=== PATIENT | male | born 1945 | race Caucasian/White ===

== ENCOUNTER → 2018-05-21 | Outpatient (CLI) | payer MEDICARE, OTHER ==
[~2018-05-21] MED LIST: ASPIRIN 32325 MG/TAB PO; CEPHALEXIN500 M1 PO; CETRIZINE; HYZAAR 25 MG-101 TAB PO; LEVAQUIN 5500 MG/TAB PO; PHENERGAN1.25 MG/ML; PROTONIX TR40 MG PO; SEPTRA DS 800 M1 TAB PO; SINGULAIR; VICODIN 5/5001 UDTAB PO; XYAL5 MG PO; ZITHROMAX 250M250 MG PO
== END ==
LOC: COL.CARD 06:30
DX: G47.10 Hypersomnia, unspecified (principal)

== ENCOUNTER 2023-10-15 22:33 | Inpatient (IN) | payer MEDICARE, OTHER ==
[~2023-10-15] VITALS: Ht 175.4 cm; Wt 107.8 kg
[2023-10-15 23:12] LABS: BASO # 0.1 K/mm3 (0.0-0.2); BASO % 0.9 % (0.0-2.0); EOS # 0.4 K/mm3 (0.0-0.7); EOS % 3.2 % (0.0-4.0); GRAN # 6.6 K/mm3 (1.4-6.5); GRAN % 51.5 % (42.2-75.2); HEMOGLOBIN 16.8 g/dl (13.5-18.0); LYMPH # 4.7 K/mm3 (1.2-3.4); LYMPH % 36.2 % (20.0-51.0); MEAN CELL VOLUME 87 fl (80.0-100.0); MEAN CORPUSCULAR HEMOGLOBIN 28 pg (27-31); MEAN CORPUSCULAR HGB CONC 32 g/dl (33.0-37.0); MEAN PLATELET VOLUME 10.6 fl (7.4-10.4); MONO % 7.9 % (1.7-9.3); PLATELET COUNT 277 K/mm3 (130-400); RED BLOOD COUNT 6.08 M/mm3 (4.20-5.60); REDCELL DISTRIBUTION WIDTH-CV 14.7 % (11.5-14.5)
[2023-10-15] MEDS ORDERED: HYDROmorphone 0.5 MG/0.5 ML SYRINGE IV ONE (23:15)
[2023-10-15] MEDS ORDERED: Ondansetron 4 MG/2 ML VIAL IV ONE (23:15)
[2023-10-15] MEDS ORDERED: NS 1,000 ML IV ONE (23:15)
[2023-10-15 23:23] LABS: HEMATOCRIT 52.6 % (42.0-52.0)
[2023-10-15 23:31] LABS: ALBUMIN 3.9 gm/dL (3.4-4.8); BILIRUBIN,TOTAL 0.3 mg/dL (0.2-1.2); C-REACTIVE PROTEIN 0.64 mg/dL (0.00-0.50); CALCIUM 10.2 mg/dL (8.4-10.2); CREATININE, serum 1.98 mg/dL (0.72-1.25); POTASSIUM 4.3 mmol/L (3.5-4.5); TOTAL PROTEIN 7.3 gm/dL (6.2-8.1)
[2023-10-16] VITALS (14 sets, daily range): BP systolic 90–167; BP diastolic 49–84; PULSE 64–83; TEMP 97.4–98
[2023-10-16] MEDS ORDERED: Iohexol 300 - 100 ML VIAL IV ONE (00:21)
[2023-10-16] MEDS ORDERED: NS 50 ML IV ONE (00:22)
[2023-10-16 00:24] LABS: PH 5.5 (5.0-8.5); URINE APPEARANCE CLEAR (CLEAR/HAZY); URINE BLOOD NEGATIVE (NEGATIVE); URINE COLOR YELLOW (YELLOW); URINE GLUCOSE 3+ (NEGATIVE); URINE KETONE NEGATIVE (NEGATIVE); URINE NITRATE NEGATIVE (NEGATIVE); URINE PROTEIN(semi-quant) 2+ (NEGATIVE); URINE UROBILINOGEN 0.2 E.U/dL (0.2-1.0)
[2023-10-16 00:31] LABS: COLLECTION METHOD CLEAN CATCH
[2023-10-16] MEDS ORDERED: NS 1,000 ML IV ONE (01:15)
[2023-10-16] MEDS ORDERED: PROTONIX 40MG T40 MG PO (01:23)
[2023-10-16] MEDS ORDERED: TOVIAZ8 MG PO (01:24)
[2023-10-16] MEDS ORDERED: PROSCAR 5MG5 MG PO (01:24)
[2023-10-16] MEDS ORDERED: ZYRTEC 10MG10 MG PO (01:25)
[2023-10-16] MEDS ORDERED: ZETIA 10MG TAB10 MG PO (01:25)
[2023-10-16] MEDS ORDERED: GLUCOTROL XL10 MG PO (01:26)
[2023-10-16] MEDS ORDERED: GLUCOPHAGE1000 MG PO (01:26)
[2023-10-16] MEDS ORDERED: ASTELIN NASAL S34 ML NS (01:26)
[2023-10-16] MEDS ORDERED: ASPIRIN 81M81 MG/TA2 PO (01:27)
[2023-10-16] MEDS ORDERED: NATURAL POTASS595 MG (01:28)
[2023-10-16] MEDS ORDERED: OMEGA-31 SGL PO (01:28)
[2023-10-16] MEDS ORDERED: FARXIGA10 PO (01:29)
[2023-10-16] MEDS ORDERED: PATADAY 2.5 ML2.5 ML OU (01:29)
[2023-10-16] MEDS ORDERED: Polyethylene Glycol 3350 17 GM PDS PO PRN (02:45)
[2023-10-16] MEDS ORDERED: Acetaminophen 500 MG TAB PO PRN (02:45)
[2023-10-16] MEDS ORDERED: Ondansetron 4 MG/2 ML VIAL IV PRN ×2 (02:45→11:30)
[2023-10-16] MEDS ORDERED: NS 1,000 ML IV SCH (02:45)
[2023-10-16] MEDS ORDERED: Morphine 4 MG/ML VIAL IV PRN (03:15)
[2023-10-16] MEDS ORDERED: Insulin Glargine-ygfn (Lantus) SQ ONE (03:15)
[2023-10-16] MEDS ORDERED: Dextrose 50% Water 25 GM/50 ML SYRINGE IV PRN (03:30)
[2023-10-16] MEDS ORDERED: Dextrose (Glucose) 15 GM (4 x 3.75 GM) Chewable TABLET PACK PO PRN (03:30)
[2023-10-16] MEDS ORDERED: Glucagon 1 MG VIAL IM PRN (03:30)
[2023-10-16] MEDS ORDERED: CYANOCOBAL1000 MCG/M IM (04:27)
--- NOTE | 2023-10-16 06:36 | NUR ---
Pt had an uneventful night. Pt is currently resting in bed with call light within reach.
[2023-10-16 06:48] LABS: BASO # 0.1 K/mm3 (0.0-0.2); BASO % 0.8 % (0.0-2.0); EOS # 0.1 K/mm3 (0.0-0.7); EOS % 1.3 % (0.0-4.0); GRAN # 6.7 K/mm3 (1.4-6.5); GRAN % 67.5 % (42.2-75.2); HEMATOCRIT 46.4 % (42.0-52.0); LYMPH # 2.1 K/mm3 (1.2-3.4); LYMPH % 21.3 % (20.0-51.0); MEAN CELL VOLUME 86 fl (80.0-100.0); MEAN CORPUSCULAR HEMOGLOBIN 28 pg (27-31); MEAN CORPUSCULAR HGB CONC 32 g/dl (33.0-37.0); MEAN PLATELET VOLUME 10.8 fl (7.4-10.4); MONO # 0.9 K/mm3 (0.1-0.6); MONO % 8.6 % (1.7-9.3); PLATELET COUNT 225 K/mm3 (130-400); RED BLOOD COUNT 5.41 M/mm3 (4.20-5.60); REDCELL DISTRIBUTION WIDTH-CV 14.6 % (11.5-14.5)
--- NOTE | 2023-10-16 06:48 | NUR ---
Called seasoner hand hospitalist about long acting insulin ordered at 033. Stated that pt is NPO and Blood sugar is 271 and pt does not take insulin at home, only metaformin. Hospitalist stated that the long acting will not drop the pt's blood sugar and they will be fine. Long acting was still given per hospitalist orders.
[2023-10-16 07:01] LABS: ALBUMIN 3.5 gm/dL (3.4-4.8); BILIRUBIN,TOTAL 0.5 mg/dL (0.2-1.2); CALCIUM 8.4 mg/dL (8.4-10.2); CREATININE, serum 1.71 mg/dL (0.72-1.25); POTASSIUM 4.7 mmol/L (3.5-4.5); TOTAL PROTEIN 6.4 gm/dL (6.2-8.1)
[2023-10-16] MEDS ORDERED: LR 1,000 ML IV SCH (07:45)
[2023-10-16] MEDS ORDERED: Insulin Lispro (HumaLOG) SQ SCH (08:00)
--- NOTE | 2023-10-16 08:43 | NUR ---
circulation worker attended interdisciplinary clinical rounding with Dr. Gale. Patient will have gallbladder surgery today. Patient would like to return home at time of discharge. SW met with patient to discuss discharge planning. Patient lives in [place] with his , Rachel, Home P# [phone] and Cell P# [phone]. PCP is Dr. Cobos, pharmacy is [facility] on [address]. No issues affording medications. Insurance is Medicare A and B and for [employer]. Patient reports he has a DPOA-HC but does not have a copy of it on him. SW will request copy of this form from his . DME is a CPAP. Patient reports he is independent with [facility] and is able to transport himself to and from appointments. Patient would like to return home at time of discharge. SW contacted patient's and requested she bring in a copy of the DPOA-HC. Rachel stated she would attempt to locate it and bring it in when she comes to visit patient after surgery. TERESA updated Rachel on patient's room number and surgery time today at 12 pm. Discharge plan: Home
[2023-10-16] MEDS ORDERED: Ketotifen 0.025% Ophth Soln 5 ML BOTTLE OP SCH (09:00)
[2023-10-16] MEDS ORDERED: OLOPATADINE 0.2% OP SCH (09:00)
[2023-10-16] MEDS ORDERED: [UNRECOGNIZED DRUG - REMARK] PO SCH (09:00)
[2023-10-16] MEDS ORDERED: Ezetimibe 10 MG TAB PO SCH (09:00)
[2023-10-16] MEDS ORDERED: Finasteride 5 MG TAB PO SCH (09:00)
[2023-10-16] MEDS ORDERED: [UNRECOGNIZED DRUG - OTHER] OP SCH (09:00)
--- NOTE | 2023-10-16 09:58 | NUR ---
PATIENT ALERT AND ORIENTED X4. VSS WITH THE EXCEPTION OF BP, WHICH IS SLIGHTLY LOW. PATIENT ENCOURAGED TO REPORT SYMPTOMS ASSOCIATED WITH LOW BP. IV TO RIGHT FA WITH NS RUNNING AT 100ML/HOUR. PATIENT ON RA. CONSENT SIGNED AND ON CHART. PATIENT DENIES ANY NEED FOR PAIN MEDICATION. PATIENT DENIES ANY FURTHER NEEDS. CALL LIGHT IN REACH.
[2023-10-16] MEDS ORDERED: fentaNYL 50 MCG/ML 2 ML VIAL ONE ×2 (10:41→12:31)
[2023-10-16] MEDS ORDERED: Rocuronium 50 MG/5 ML Multi-Dose VIAL ONE (10:41)
[2023-10-16] MEDS ORDERED: Ondansetron 4 MG/2 ML VIAL ONE (10:42)
[2023-10-16] MEDS ORDERED: NS 10 ML IV ONE (10:42)
[2023-10-16] MEDS ORDERED: dexAMETHasone 10 MG/ML VIAL ONE (10:42)
[2023-10-16] MEDS ORDERED: droPERidol 2.5 MG/ML 2 ML VIAL IV PRN (11:30)
[2023-10-16] MEDS ORDERED: HYDROmorphone 2 MG/1 ML VIAL IV PRN (11:30)
[2023-10-16] MEDS ORDERED: hydrALAZINE 20 MG/ML 1 ML VIAL IV PRN (11:30)
[2023-10-16] MEDS ORDERED: fentaNYL 50 MCG/ML 2 ML VIAL IV PRN ×2 (11:30)
--- NOTE | 2023-10-16 11:32 | NUR ---
PATIENT OFF OF FLOOR FOR SURGERY
--- NOTE | 2023-10-16 14:23 | NUR ---
PATIENT BACK TO FLOOR AT APPROXIMATELY 1350. POSTOP VITALS RUNNING. POST OP FLUIDS HANGING. PATIENT EATING ICE CHIPS, TOLERATING WITH NO NAUSEA. LAPS X3 WITH BANDAIDS, LOWER SITE WITH SOME SHADOWING, BUT MINIMAL. PATIENT DENIES ANY PAIN AT THIS TIME. CALL LIGHT IN REACH.
--- NOTE | 2023-10-16 15:56 | NUR ---
PATIENT TOLERATING PO. IV TO INT. PATIENT VOIDED, PAIN IS AT A MINIMUM. POST OP VITALS WNL. PATIENT RESTING IN BED.
[2023-10-16] MEDS ORDERED: Heparin 5,000 UNITS/ML 1 ML VIAL SQ SCH (16:00)
--- NOTE | 2023-10-16 19:39 | NUR ---
PT IS RESTING IN BED WATCHING TV. NO COMPLIANTS AT THIS TIME. PT HAS BEEN AMBULATING TO THE BATHROOM WITH NO ASSIST. RIGHT FOREARM IV IN PLACE, NOTHING INFUSING. CALL HOOVER WITH THE PATIENT.
[2023-10-16] MEDS ORDERED: Cetirizine 10 MG TAB PO SCH (21:00)
[2023-10-17 00:55] VITALS: BP 117/70; PULSE 65; TEMP 97.7
[2023-10-17 04:58] VITALS: BP 109/66; PULSE 60; TEMP 97.4
[2023-10-17 05:00] VITALS: BP_SYST 109
[2023-10-17 06:49] LABS: BASO % 0.1 % (0.0-2.0); GRAN # 6.9 K/mm3 (1.4-6.5); GRAN % 74.3 % (42.2-75.2); HEMATOCRIT 45.8 % (42.0-52.0); HEMOGLOBIN 14.6 g/dl (13.5-18.0); LYMPH # 1.6 K/mm3 (1.2-3.4); LYMPH % 17.5 % (20.0-51.0); MEAN CELL VOLUME 87 fl (80.0-100.0); MEAN CORPUSCULAR HEMOGLOBIN 28 pg (27-31); MEAN CORPUSCULAR HGB CONC 32 g/dl (33.0-37.0); MEAN PLATELET VOLUME 10.7 fl (7.4-10.4); MONO # 0.7 K/mm3 (0.1-0.6); MONO % 7.6 % (1.7-9.3); PLATELET COUNT 231 K/mm3 (130-400); RED BLOOD COUNT 5.27 M/mm3 (4.20-5.60); REDCELL DISTRIBUTION WIDTH-CV 14.4 % (11.5-14.5)
[2023-10-17 07:03] LABS: CALCIUM 8.3 mg/dL (8.4-10.2); CREATININE, serum 1.66 mg/dL (0.72-1.25); POTASSIUM 4.7 mmol/L (3.5-4.5)
[2023-10-17 07:43] VITALS: BP 126/76; PULSE 65; TEMP 94.2
[2023-10-17] MEDS ORDERED: GLUCOPHAGE500 MG/TAB PO (08:26)
--- NOTE | 2023-10-17 11:24 | NUR ---
PATIENT ALERT AND ORIENTED X4. VSS. PATIENT HERE FOR LAP GEOVANNA. LAPS X2 WITH BANDAID, CDI. LAP X1 WITH OLD DRAINAGE, BANDAID INTACT. IV TO RIGHT FA INT AND FLUSHES WELL. ACCU CHECK [id number], NO INSULIN REQUIRED. PATIENT DENIES ANY PAIN. CALL LIGHT IN REACH.
--- NOTE | 2023-10-17 11:28 | NUR ---
DISCHARGE INSTRUCTIONS PROVIDED. PATIENT EDUCATION GIVEN. PATIENT INSTRUCTED ON CHANGES IN MEDICATIONS. PATIENT WANTS TO REVIEW WITH PCP PRIOR TO CHANGED. PCP APPOINTMENT SCHEDULED. FOLLOW UP APPOINTMENT WITH DR DANIEL DISCUSSED. IV DC'D. PATIENT DENIES ANY QUESTIONS OR CONCERNS. PATIENT ESCORTED OUT VIA WHEELCHAIR.
== END 2023-10-17 11:31 | disposition home or self-care (01) | DRG 419 ==
LOC: COL.ER 22:33 → SURG 10-16 01:05
PROVIDERS: Nurse Practitioner; Surgery; ADMIT Internal Medicine
PROC: 0FT44ZZ Resection of Gallbladder, Percutaneous Endoscopic Approach (ICD-10-PCS; principal; 2023-10-16 12:00)
DX: K80.00 Calculus of gallbladder with acute cholecystitis without obstruction (principal); E78.5 Hyperlipidemia, unspecified; N40.0 Benign prostatic hyperplasia without lower urinary tract symptoms; E11.22 Type 2 diabetes mellitus with diabetic chronic kidney disease; I12.9 Hypertensive chronic kidney disease with stage 1 through stage 4 chronic kidney disease, or unspecified chronic kidney disease; E87.5 Hyperkalemia; N18.9 Chronic kidney disease, unspecified; R74.02 Elevation of levels of lactic acid dehydrogenase [LDH]; K21.9 Gastro-esophageal reflux disease without esophagitis; Z88.1 Allergy status to other antibiotic agents; Z88.8 Allergy status to other drugs, medicaments and biological substances; Z79.899 Other long term (current) drug therapy; Z79.82 Long term (current) use of aspirin; Z79.84 Long term (current) use of oral hypoglycemic drugs; Z23 Encounter for immunization
CPT/HCPCS: J0665; J0690; J1100; J1170; J1644; J1815; J2405; J2543; J2704; J3010; J7030; Q9967

== ENCOUNTER → 2024-05-26 | Outpatient (CLI) | payer MEDICARE, OTHER ==
[~2024-05-26] MED LIST changes: +ASPIRIN 81M81 MG/TA2 PO; +ASTELIN NASAL S34 ML NS; +CYANOCOBAL1000 MCG/M IM; +FARXIGA10 PO; +GLUCOPHAGE1000 MG PO; +GLUCOPHAGE500 MG/TAB PO; +GLUCOTROL XL10 MG PO; +NATURAL POTASS595 MG; +OMEGA-31 SGL PO; +PATADAY 2.5 ML2.5 ML OU; +PROSCAR 5MG5 MG PO; +PROTONIX 40MG T40 MG PO; +TOVIAZ8 MG PO; +ZETIA 10MG TAB10 MG PO; +ZYRTEC 10MG10 MG PO
== END ==
LOC: COL.RAD 07:17
DX: R43.0 Anosmia (principal)